=== PATIENT | female | born 1955 | race African-American/Black ===

== ENCOUNTER 2019-04-20 06:10 | Inpatient (IN) ==
[~2019-04-20 06:10] MED LIST: CLINDAMYCIN INJ 900 MG in PREMIX 1 EACH IV ONE; VANCOMYCIN INJ 1,000 MG in SODIUM CHLORIDE 0.9% 250 ML IV ONE
[2019-04-20] MEDS ORDERED: LACTATED RINGERS 1,000 ML IV SCH (07:00)
[2019-04-20] MEDS ORDERED: ALBUTEROL/IPRATROPIUM 3 ML NEB RESP TX STA (07:00)
[2019-04-20] MEDS ORDERED: BUPIVACAINE SPINAL 0.75% 2 ML AMP SPINAL ONE (07:08)
[2019-04-20] MEDS ORDERED: DEXAMETHASONE 4 MG/1 ML VIAL ONE (07:09)
[2019-04-20] MEDS ORDERED: ROPIVACAINE 0.5% 30 ML VIAL ONE (07:09)
[2019-04-20] MEDS ORDERED: CLINDAMYCIN INJ 50 ML IV ONE (07:22)
[2019-04-20] MEDS ORDERED: VANCOMYCIN 1,000 MG VIAL ONE (07:22)
[2019-04-20] MEDS ORDERED: NITROGLYCERIN SL 0.4 MG TABLET SL PRN (08:39)
[2019-04-20] MEDS ORDERED: MORPHINE 4 MG/1 ML VIAL IV PRN ×2 (08:42)
[2019-04-20] MEDS ORDERED: ONDANSETRON 4 MG/2 ML VIAL IV PRN (08:42)
[2019-04-20] MEDS ORDERED: oxyCODONE IR 5 MG TABLET PO PRN ×2 (08:42)
[2019-04-20] MEDS ORDERED: MAGNESIUM HYDROXIDE SUSP 30 ML UDCUP PO PRN (08:42)
[2019-04-20] MEDS ORDERED: NEOMYCIN/POLYMYXIN/BACITRACIN OINT 28.4 GM TUBE TOP ONE (10:25)
[2019-04-20] MEDS ORDERED: GLUCAGON 1 MG VIAL IM PRN (10:42)
[2019-04-20] MEDS ORDERED: DEXTROSE 10% 25 GM/250 ML BAG IV PRN (10:42)
[2019-04-20] MEDS ORDERED: ALBUTEROL/IPRATROPIUM 3 ML NEB RESP TX ONE ×2 (10:46→11:13)
[2019-04-20] MEDS ORDERED: PROPOFOL 200 MG/20 ML VIAL IV ONE (10:57)
[2019-04-20] MEDS ORDERED: TRANEXAMIC ACID 1,000 MG/10 ML VIAL ONE (10:58)
[2019-04-20] MEDS ORDERED: fentaNYL 100 MCG/2 ML VIAL ONE (10:58)
[2019-04-20] MEDS ORDERED: MIDAZOLAM 2 MG/2 ML VIAL ONE (10:58)
[2019-04-20] MEDS ORDERED: KETAMINE 500 MG/10 ML VIAL ONE (10:58)
[2019-04-20] MEDS ORDERED: SODIUM CHLORIDE 0.9% 100 ML IV ONE (10:59)
[2019-04-20] MEDS ORDERED: ACETAMINOPHEN 1,000 MG/100 ML VIAL IV ONE (10:59)
[2019-04-20] MEDS: LACTATED RINGERS 1,000 ML IV SCH ×2 (11:23→20:13)
[2019-04-20] MEDS: INSULIN LISPRO 100 UNIT/ML SUBCUT SCH ×3 (12:30→22:35)
[2019-04-20] MEDS: DOCUSATE SODIUM 100 MG CAPSULE PO SCH ×2 (13:06→21:26)
[2019-04-20] MEDS: ISOSORBIDE MONONITRATE 30 MG TABLET PO SCH (13:06)
[2019-04-20] MEDS: POTASSIUM CHLORIDE 20 MEQ TABLET PO SCH (13:08)
[2019-04-20] MEDS: FLUoxetine 20 MG CAPSULE PO SCH (13:10)
[2019-04-20] MEDS: PANTOPRAZOLE 40 MG TABLET PO SCH (13:10)
[2019-04-20] MEDS: oxyCODONE/ACETAMINOPHEN 5-325 MG TABLET PO PRN ×2 (14:50→21:26)
[2019-04-20] MEDS ORDERED: ALBUTEROL 2.5 MG/3 ML NEB RESP TX PRN (15:00)
[2019-04-20] MEDS ORDERED: VANCOMYCIN INJ 1,000 MG in SODIUM CHLORIDE 0.9% 250 ML IV ONE (20:00)
[2019-04-20] MEDS: CLINDAMYCIN INJ 900 MG in PREMIX 1 EACH IV SCH (20:12)
[2019-04-20] MEDS: CARVEDILOL 25 MG TABLET PO SCH (20:13)
[2019-04-20] MEDS: MONTELUKAST 10 MG TABLET PO SCH (21:26)
[2019-04-20] MEDS: risperiDONE 1 MG TABLET PO SCH (21:26)
[2019-04-20] MEDS: ATORVASTATIN 20 MG TABLET PO SCH (21:26)
[2019-04-21] MEDS: CLINDAMYCIN INJ 900 MG in PREMIX 1 EACH IV SCH (01:23)
[2019-04-21] MEDS: FONDAPARINUX 2.5 MG/0.5 ML SYRINGE SUBCUT SCH (01:23)
[2019-04-21] MEDS: LACTATED RINGERS 1,000 ML IV SCH (04:13)
[2019-04-21 05:56] LABS: Basophils % 0.1 % (0.0-0.8); Immature Granulocytes % 0.7 %; Immature Granulocytes Absolute 0.06 #; Lymphocytes % 10.8 % (21.3-54.2); Mean Platelet Volume 9.8 FL (9.6-12.0); Monocytes % 10.2 % (1.7-12.7); Neutrophils % 78.2 % (38.7-73.9); Platelet Count 149 T/CUMM (130-400); Red Blood Count 3.72 MC/CUMM (3.8-5.5); Red Cell Distribution Width 15.9 % (9.3-17.3); White Blood Count 9.2 T/CUMM (4-12)
[2019-04-21 06:24] LABS: Calcium 8.2 MG/DL (8.5-10.1); Osmolality,Calculated 280.4 MOS/KG (273-304)
[2019-04-21] MEDS: INSULIN LISPRO 100 UNIT/ML SUBCUT SCH ×4 (07:30→21:12)
[2019-04-21] MEDS: oxyCODONE/ACETAMINOPHEN 5-325 MG TABLET PO PRN ×3 (08:50→22:31)
[2019-04-21] MEDS: POTASSIUM CHLORIDE 20 MEQ TABLET PO SCH (08:52)
[2019-04-21] MEDS: MAGNESIUM OXIDE 400 MG TABLET PO SCH (08:52)
[2019-04-21] MEDS: ENALAPRIL 20 MG TABLET PO SCH (08:52)
[2019-04-21] MEDS: ISOSORBIDE MONONITRATE 30 MG TABLET PO SCH (08:52)
[2019-04-21] MEDS: amLODIPine 5 MG TABLET PO SCH (08:52)
[2019-04-21] MEDS: GLIMEPIRIDE 2 MG TABLET PO SCH ×2 (08:53→08:56)
[2019-04-21] MEDS: FLUoxetine 20 MG CAPSULE PO SCH (08:53)
[2019-04-21] MEDS: PANTOPRAZOLE 40 MG TABLET PO SCH (08:54)
[2019-04-21] MEDS: CARVEDILOL 25 MG TABLET PO SCH ×2 (08:54→17:41)
[2019-04-21] MEDS: FUROSEMIDE 40 MG TABLET PO SCH (08:54)
[2019-04-21] MEDS: DOCUSATE SODIUM 100 MG CAPSULE PO SCH ×2 (08:54→21:12)
[2019-04-21] MEDS: ATORVASTATIN 20 MG TABLET PO SCH (21:13)
[2019-04-21] MEDS: risperiDONE 1 MG TABLET PO SCH (21:13)
[2019-04-21] MEDS: MONTELUKAST 10 MG TABLET PO SCH (21:13)
[2019-04-21] MEDS: BACLOFEN 10 MG TABLET PO PRN (21:18)
[2019-04-22] MEDS: diphenhydrAMINE CAP 25 MG CAPSULE PO PRN ×2 (00:48→16:36)
[2019-04-22] MEDS: FONDAPARINUX 2.5 MG/0.5 ML SYRINGE SUBCUT SCH (02:53)
[2019-04-22 06:05] LABS: Basophils % 0.1 % (0.0-0.8); Hematocrit 26.2 VOL% (35.7-47.0); Hemoglobin 8.1 GM/DL (12.0-16.0); Immature Granulocytes % 0.5 %; Immature Granulocytes Absolute 0.05 #; Lymphocytes # 1.2 10*3/uL (1.4-4.0); Lymphocytes % 12.6 % (21.3-54.2); Mean Corpuscular HGB Conc 30.9 GM/DL (32-36); Mean Corpuscular Volume 77.7 FL (87-102); Mean Platelet Volume 10.8 FL (9.6-12.0); Monocytes % 8.4 % (1.7-12.7); Neutrophils % 78.4 % (38.7-73.9); Platelet Count 152 T/CUMM (130-400); Red Blood Count 3.37 MC/CUMM (3.8-5.5); Red Cell Distribution Width 15.8 % (9.3-17.3); White Blood Count 9.7 T/CUMM (4-12)
[2019-04-22] MEDS: oxyCODONE/ACETAMINOPHEN 5-325 MG TABLET PO PRN ×3 (08:07→21:32)
[2019-04-22] MEDS: MAGNESIUM OXIDE 400 MG TABLET PO SCH (08:20)
[2019-04-22] MEDS: FLUoxetine 20 MG CAPSULE PO SCH (08:20)
[2019-04-22] MEDS: POTASSIUM CHLORIDE 20 MEQ TABLET PO SCH (08:21)
[2019-04-22] MEDS: GLIMEPIRIDE 2 MG TABLET PO SCH (08:21)
[2019-04-22] MEDS: CARVEDILOL 25 MG TABLET PO SCH ×2 (08:21→17:00)
[2019-04-22] MEDS: ISOSORBIDE MONONITRATE 30 MG TABLET PO SCH (08:21)
[2019-04-22] MEDS: DOCUSATE SODIUM 100 MG CAPSULE PO SCH ×2 (08:21→21:32)
[2019-04-22] MEDS: ENALAPRIL 20 MG TABLET PO SCH (08:21)
[2019-04-22] MEDS: FUROSEMIDE 40 MG TABLET PO SCH (08:22)
[2019-04-22] MEDS: amLODIPine 5 MG TABLET PO SCH (08:22)
[2019-04-22] MEDS: PANTOPRAZOLE 40 MG TABLET PO SCH (08:22)
[2019-04-22] MEDS: BACLOFEN 10 MG TABLET PO PRN ×2 (08:22→21:33)
[2019-04-22] MEDS: INSULIN LISPRO 100 UNIT/ML SUBCUT SCH ×4 (08:30→21:37)
[2019-04-22] MEDS: risperiDONE 1 MG TABLET PO SCH (21:32)
[2019-04-22] MEDS: MONTELUKAST 10 MG TABLET PO SCH (21:32)
[2019-04-22] MEDS: ATORVASTATIN 20 MG TABLET PO SCH (21:33)
[2019-04-23] MEDS: FONDAPARINUX 2.5 MG/0.5 ML SYRINGE SUBCUT SCH (02:56)
[2019-04-23 05:48] LABS: Basophils % 0.2 % (0.0-0.8); Eosinophils % 0.2 % (0.00-10.9); Hematocrit 24.2 VOL% (35.7-47.0); Hemoglobin 7.5 GM/DL (12.0-16.0); Immature Granulocytes % 0.5 %; Immature Granulocytes Absolute 0.05 #; Lymphocytes # 1.8 10*3/uL (1.4-4.0); Lymphocytes % 17.9 % (21.3-54.2); Mean Corpuscular Volume 77.8 FL (87-102); Mean Platelet Volume 11.3 FL (9.6-12.0); Monocytes % 7.7 % (1.7-12.7); Neutrophils % 73.5 % (38.7-73.9); Platelet Count 157 T/CUMM (130-400); Red Blood Count 3.11 MC/CUMM (3.8-5.5); Red Cell Distribution Width 15.9 % (9.3-17.3); White Blood Count 10.2 T/CUMM (4-12)
[2019-04-23] MEDS: INSULIN LISPRO 100 UNIT/ML SUBCUT SCH ×2 (07:52→12:20)
[2019-04-23] MEDS: DOCUSATE SODIUM 100 MG CAPSULE PO SCH (08:57)
[2019-04-23] MEDS: CARVEDILOL 25 MG TABLET PO SCH (08:57)
[2019-04-23] MEDS: GLIMEPIRIDE 2 MG TABLET PO SCH (08:57)
[2019-04-23] MEDS: PANTOPRAZOLE 40 MG TABLET PO SCH (08:58)
[2019-04-23] MEDS: FUROSEMIDE 40 MG TABLET PO SCH (08:58)
[2019-04-23] MEDS: FLUoxetine 20 MG CAPSULE PO SCH (08:58)
[2019-04-23] MEDS: ISOSORBIDE MONONITRATE 30 MG TABLET PO SCH (08:58)
[2019-04-23] MEDS: MAGNESIUM OXIDE 400 MG TABLET PO SCH (08:58)
[2019-04-23] MEDS: ENALAPRIL 20 MG TABLET PO SCH (08:58)
[2019-04-23] MEDS: POTASSIUM CHLORIDE 20 MEQ TABLET PO SCH (08:58)
[2019-04-23] MEDS: amLODIPine 5 MG TABLET PO SCH (08:58)
[2019-04-23] MEDS ORDERED: ERGOCALCIFEROL 50,000 UNIT CAPSULE PO SCH (09:00)
[2019-04-23] MEDS: oxyCODONE/ACETAMINOPHEN 5-325 MG TABLET PO PRN (09:46)
[2019-04-23] MEDS: BACLOFEN 10 MG TABLET PO PRN (09:47)
[2019-04-23 11:42] VITALS: BP 115/52
== END 2019-04-23 15:14 | disposition home health service (06) | DRG 470 ==
LOC: N.OR 06:10 → N.SDSINP 06:10 → N.3E 11:44
PROVIDERS: ADMIT Orthopaedic Surgery; ATTEND Orthopaedic Surgery

== ENCOUNTER 2021-08-15 16:33 | Inpatient (IN) ==
[2021-08-15] MEDS ORDERED: GLUCAGON 1 MG VIAL IM PRN (20:07)
[2021-08-15] MEDS ORDERED: ONDANSETRON 4 MG/2 ML VIAL IV PRN (20:07)
[2021-08-15] MEDS ORDERED: hydrALAZINE 20 MG/1 ML VIAL IV PRN (20:07)
[2021-08-15] MEDS ORDERED: DEXTROSE 50% 25 GM/50 ML SYRINGE IV PRN (20:36)
[2021-08-15] MEDS ORDERED: methylPREDNISolone SOD SUC 40 MG/1 ML VIAL IV SCH (21:00)
[2021-08-15] MEDS: LEVOFLOXACIN INJ 750 MG/150 ML PREMIX IV SCH (21:08)
[2021-08-15] MEDS: INSULIN LISPRO 100 UNIT/ML SUBCUT SCH (21:08)
[2021-08-15 21:10] LABS: PT Patient Result 11.6 SECS (10.5-12.0)
[2021-08-15 21:16] LABS: Hematocrit 41.9 VOL% (35.7-47.0); Hemoglobin 12.6 GM/DL (12.0-16.0); Immature Granulocytes % 1.2 %; Immature Granulocytes Absolute 0.12 #; Lymphocytes # 0.6 10*3/uL (1.4-4.0); Lymphocytes % 6.5 % (21.3-54.2); Mean Corpuscular HGB Conc 30.1 GM/DL (32-36); Mean Corpuscular Volume 77.9 FL (87-102); Mean Platelet Volume 9.2 FL (9.6-12.0); Monocytes % 5.5 % (1.7-12.7); Neutrophils % 86.8 % (38.7-73.9); Platelet Count 204 T/CUMM (130-400); Red Blood Count 5.38 MC/CUMM (3.8-5.5); Red Cell Distribution Width 16.9 % (9.3-17.3); White Blood Count 9.7 T/CUMM (4-12)
[2021-08-15 21:18] LABS: Albumin 2.7 G/DL (3.4-5.0); Bilirubin,Total 0.5 MG/DL (0.20-1.00); Calcium 8.3 MG/DL (8.5-10.1); Osmolality,Calculated 284.4 MOS/KG (273-304); Potassium 3.9 MMOL/L (3.5-5.1); Total Protein 6.5 G/DL (6.4-8.2)
[2021-08-15] MEDS: ACETAMINOPHEN 325 MG TABLET PO PRN (21:22)
[2021-08-15 22:42] LABS: ABG HCO3 33.7 MMOL/L (20-26); ABG Oxygen Saturation 96.1 % (95-100); ABG PH 7.332 (7.35-7.45)
[2021-08-15 22:44] LABS: ABG PCO2 74.2 MM HG (35-48)
[2021-08-16] MEDS: methylPREDNISolone SOD SUC 125 MG/2 ML VIAL IV SCH ×3 (00:05→18:23)
[2021-08-16] MEDS: ALBUTEROL/IPRATROPIUM 3 ML NEB RESP TX SCH ×3 (00:20→19:58)
[2021-08-16 06:24] LABS: Risk Ratio 2.13; VLDL Cholesterol 20.4 MG/DL
[2021-08-16 07:23] LABS: ABG Base Excess 13.6 MMOL/L (-2.5-2.5); ABG HCO3 37.1 MMOL/L (20-26); ABG Oxygen Saturation 84.6 % (95-100); ABG PCO2 59.4 MM HG (35-48); ABG PH 7.445 (7.35-7.45); ABG PO2 49.3 MM HG (80-95); ABG TCO2 35.5 MMOL/L (23-27)
[2021-08-16] MEDS: ISOSORBIDE MONONITRATE 30 MG TABLET PO SCH (08:32)
[2021-08-16] MEDS: POTASSIUM CHLORIDE 20 MEQ TABLET PO SCH (08:32)
[2021-08-16] MEDS: ENALAPRIL 20 MG TABLET PO SCH (08:32)
[2021-08-16] MEDS: FUROSEMIDE 40 MG TABLET PO SCH (08:32)
[2021-08-16] MEDS: PANTOPRAZOLE 40 MG TABLET PO SCH (08:32)
[2021-08-16] MEDS: carvediloL 25 MG TABLET PO SCH ×2 (08:32→18:22)
[2021-08-16] MEDS: MAGNESIUM OXIDE 400 MG TABLET PO SCH (08:33)
[2021-08-16] MEDS: amLODIPine 5 MG TABLET PO SCH (08:33)
[2021-08-16] MEDS: CYANOCOBALAMIN 500 MCG TABLET PO SCH (08:33)
[2021-08-16] MEDS: INSULIN LISPRO 100 UNIT/ML SUBCUT SCH ×4 (08:35→20:28)
[2021-08-16] MEDS: FERROUS SULFATE 325 MG TABLET PO SCH ×2 (08:36→20:27)
[2021-08-16] MEDS: ACETAMINOPHEN 325 MG TABLET PO PRN ×2 (14:18→18:44)
[2021-08-16] MEDS: MONTELUKAST 10 MG TABLET PO SCH (20:26)
[2021-08-16] MEDS: ATORVASTATIN 20 MG TABLET PO SCH (20:27)
[2021-08-16] MEDS: ENOXAPARIN 40 MG/0.4 ML SYRINGE SUBCUT SCH (20:28)
[2021-08-16] MEDS: MENTHOL/ZINC OXIDE OINT 71 GM JAR TOP SCH (20:28)
[2021-08-16] MEDS: LEVOFLOXACIN INJ 750 MG/150 ML PREMIX IV SCH (20:29)
[2021-08-17] MEDS: ALBUTEROL/IPRATROPIUM 3 ML NEB RESP TX SCH ×4 (00:21→21:08)
[2021-08-17] MEDS: methylPREDNISolone SOD SUC 125 MG/2 ML VIAL IV SCH ×2 (00:24→11:03)
[2021-08-17] MEDS: ACETAMINOPHEN 325 MG TABLET PO PRN (03:39)
[2021-08-17 05:50] LABS: Hematocrit 42.5 VOL% (35.7-47.0); Hemoglobin 12.9 GM/DL (12.0-16.0); Immature Granulocytes % 0.8 %; Immature Granulocytes Absolute 0.07 #; Lymphocytes # 0.5 10*3/uL (1.4-4.0); Lymphocytes % 5.9 % (21.3-54.2); Mean Corpuscular HGB Conc 30.4 GM/DL (32-36); Mean Platelet Volume 9.9 FL (9.6-12.0); Monocytes % 2.5 % (1.7-12.7); Neutrophils % 90.8 % (38.7-73.9); Platelet Count 220 T/CUMM (130-400); Red Blood Count 5.52 MC/CUMM (3.8-5.5); Red Cell Distribution Width 16.7 % (9.3-17.3); White Blood Count 8.5 T/CUMM (4-12)
[2021-08-17 06:09] LABS: Calcium 8.5 MG/DL (8.5-10.1); Osmolality,Calculated 280.8 MOS/KG (273-304); Potassium 3.9 MMOL/L (3.5-5.1)
[2021-08-17 06:13] LABS: Lymphocytes 6 % (20-55); Segmented Neutrophils 90 % (50-85); Total Cells Counted 100
[2021-08-17 06:14] LABS: Hypochromia 2+; Microcytosis 1+; Ovalocytes Slight
[2021-08-17 06:15] LABS: Platelet Estimate Normal; Target Cells Slight
[2021-08-17] MEDS: ACETAMINOPHEN/CODEINE 300-30 MG TABLET PO PRN ×2 (07:12→22:35)
[2021-08-17] MEDS: INSULIN LISPRO 100 UNIT/ML SUBCUT SCH ×4 (08:54→22:38)
[2021-08-17] MEDS ORDERED: ERGOCALCIFEROL 50,000 UNIT CAPSULE PO SCH (09:00)
[2021-08-17] MEDS: ENALAPRIL 20 MG TABLET PO SCH (09:55)
[2021-08-17] MEDS: CYANOCOBALAMIN 500 MCG TABLET PO SCH (09:55)
[2021-08-17] MEDS: carvediloL 25 MG TABLET PO SCH ×2 (09:55→16:15)
[2021-08-17] MEDS: amLODIPine 5 MG TABLET PO SCH (09:56)
[2021-08-17] MEDS: PANTOPRAZOLE 40 MG TABLET PO SCH (09:56)
[2021-08-17] MEDS: FUROSEMIDE 40 MG TABLET PO SCH (09:56)
[2021-08-17] MEDS: ISOSORBIDE MONONITRATE 30 MG TABLET PO SCH (09:56)
[2021-08-17] MEDS: POTASSIUM CHLORIDE 20 MEQ TABLET PO SCH (09:56)
[2021-08-17] MEDS: metOLazone 5 MG TABLET PO SCH (09:56)
[2021-08-17] MEDS: FERROUS SULFATE 325 MG TABLET PO SCH ×2 (09:56→22:35)
[2021-08-17] MEDS: MAGNESIUM OXIDE 400 MG TABLET PO SCH (09:56)
[2021-08-17] MEDS: MENTHOL/ZINC OXIDE OINT 71 GM JAR TOP SCH ×2 (09:57→22:41)
[2021-08-17] MEDS: LEVOFLOXACIN 750 MG TABLET PO SCH (16:15)
[2021-08-17] MEDS: methylPREDNISolone SOD SUC 40 MG/1 ML VIAL IV SCH (16:16)
[2021-08-17] MEDS: MONTELUKAST 10 MG TABLET PO SCH (22:34)
[2021-08-17] MEDS: ATORVASTATIN 20 MG TABLET PO SCH (22:35)
[2021-08-17] MEDS: ENOXAPARIN 40 MG/0.4 ML SYRINGE SUBCUT SCH (22:38)
[2021-08-18] MEDS: ALBUTEROL/IPRATROPIUM 3 ML NEB RESP TX SCH ×4 (00:51→21:46)
[2021-08-18] MEDS: methylPREDNISolone SOD SUC 40 MG/1 ML VIAL IV SCH ×2 (03:06→14:49)
[2021-08-18] MEDS: ACETAMINOPHEN 325 MG TABLET PO PRN (03:08)
[2021-08-18 06:12] LABS: Calcium 8.6 MG/DL (8.5-10.1); Osmolality,Calculated 280.7 MOS/KG (273-304)
[2021-08-18 06:21] LABS: Basophils % 0.1 % (0.0-0.8); Hematocrit 44.9 VOL% (35.7-47.0); Hemoglobin 13.7 GM/DL (12.0-16.0); Immature Granulocytes % 1.1 %; Immature Granulocytes Absolute 0.13 #; Lymphocytes # 0.6 10*3/uL (1.4-4.0); Lymphocytes % 5.3 % (21.3-54.2); Mean Corpuscular HGB Conc 30.5 GM/DL (32-36); Mean Corpuscular Volume 76.9 FL (87-102); Mean Platelet Volume 9.4 FL (9.6-12.0); Monocytes % 4.5 % (1.7-12.7); Platelet Count 207 T/CUMM (130-400); Red Blood Count 5.84 MC/CUMM (3.8-5.5); Red Cell Distribution Width 16.7 % (9.3-17.3); White Blood Count 12.1 T/CUMM (4-12)
[2021-08-18] MEDS: ACETAMINOPHEN/CODEINE 300-30 MG TABLET PO PRN (06:21)
[2021-08-18] MEDS: INSULIN LISPRO 100 UNIT/ML SUBCUT SCH ×4 (10:37→22:53)
[2021-08-18] MEDS: ENALAPRIL 20 MG TABLET PO SCH (10:37)
[2021-08-18] MEDS: MAGNESIUM OXIDE 400 MG TABLET PO SCH (10:37)
[2021-08-18] MEDS: PANTOPRAZOLE 40 MG TABLET PO SCH (10:38)
[2021-08-18] MEDS: amLODIPine 5 MG TABLET PO SCH (10:38)
[2021-08-18] MEDS: LEVOFLOXACIN 750 MG TABLET PO SCH (10:38)
[2021-08-18] MEDS: ISOSORBIDE MONONITRATE 30 MG TABLET PO SCH (10:38)
[2021-08-18] MEDS: CYANOCOBALAMIN 500 MCG TABLET PO SCH (10:38)
[2021-08-18] MEDS: FERROUS SULFATE 325 MG TABLET PO SCH ×2 (10:39→22:50)
[2021-08-18] MEDS: carvediloL 25 MG TABLET PO SCH ×2 (10:39→17:10)
[2021-08-18] MEDS: POTASSIUM CHLORIDE 20 MEQ TABLET PO SCH (10:39)
[2021-08-18] MEDS: FUROSEMIDE 40 MG TABLET PO SCH (10:39)
[2021-08-18] MEDS: MENTHOL/ZINC OXIDE OINT 71 GM JAR TOP SCH ×2 (10:41→22:58)
[2021-08-18] MEDS: MONTELUKAST 10 MG TABLET PO SCH (22:50)
[2021-08-18] MEDS: ENOXAPARIN 40 MG/0.4 ML SYRINGE SUBCUT SCH (22:53)
[2021-08-18] MEDS: ATORVASTATIN 20 MG TABLET PO SCH (22:53)
[2021-08-19] MEDS: ALBUTEROL/IPRATROPIUM 3 ML NEB RESP TX SCH ×4 (00:46→21:49)
[2021-08-19] MEDS: methylPREDNISolone SOD SUC 40 MG/1 ML VIAL IV SCH ×2 (03:36→16:04)
[2021-08-19] MEDS: ACETAMINOPHEN/CODEINE 300-30 MG TABLET PO PRN ×2 (03:41→19:48)
[2021-08-19] MEDS: INSULIN LISPRO 100 UNIT/ML SUBCUT SCH ×4 (10:03→23:05)
[2021-08-19] MEDS: MAGNESIUM OXIDE 400 MG TABLET PO SCH (10:29)
[2021-08-19] MEDS: amLODIPine 5 MG TABLET PO SCH (10:29)
[2021-08-19] MEDS: CYANOCOBALAMIN 500 MCG TABLET PO SCH (10:29)
[2021-08-19] MEDS: LEVOFLOXACIN 750 MG TABLET PO SCH (10:29)
[2021-08-19] MEDS: FUROSEMIDE 40 MG TABLET PO SCH (10:30)
[2021-08-19] MEDS: ENALAPRIL 20 MG TABLET PO SCH (10:30)
[2021-08-19] MEDS: ISOSORBIDE MONONITRATE 30 MG TABLET PO SCH (10:31)
[2021-08-19] MEDS: POTASSIUM CHLORIDE 20 MEQ TABLET PO SCH (10:31)
[2021-08-19] MEDS: PANTOPRAZOLE 40 MG TABLET PO SCH (10:31)
[2021-08-19] MEDS: FERROUS SULFATE 325 MG TABLET PO SCH ×2 (10:31→23:05)
[2021-08-19] MEDS: carvediloL 25 MG TABLET PO SCH ×2 (10:31→16:04)
[2021-08-19] MEDS: MENTHOL/ZINC OXIDE OINT 71 GM JAR TOP SCH ×2 (10:35→23:06)
[2021-08-19] MEDS: ENOXAPARIN 40 MG/0.4 ML SYRINGE SUBCUT SCH (23:05)
[2021-08-19] MEDS: ATORVASTATIN 20 MG TABLET PO SCH (23:05)
[2021-08-19] MEDS: MONTELUKAST 10 MG TABLET PO SCH (23:06)
[2021-08-20] MEDS: ALBUTEROL/IPRATROPIUM 3 ML NEB RESP TX SCH ×4 (01:14→19:53)
[2021-08-20] MEDS: ACETAMINOPHEN/CODEINE 300-30 MG TABLET PO PRN ×2 (02:24→16:54)
[2021-08-20] MEDS: methylPREDNISolone SOD SUC 40 MG/1 ML VIAL IV SCH ×2 (02:25→14:51)
[2021-08-20] MEDS: INSULIN LISPRO 100 UNIT/ML SUBCUT SCH ×4 (09:25→20:44)
[2021-08-20] MEDS: ISOSORBIDE MONONITRATE 30 MG TABLET PO SCH (09:26)
[2021-08-20] MEDS: LEVOFLOXACIN 750 MG TABLET PO SCH (09:26)
[2021-08-20] MEDS: carvediloL 25 MG TABLET PO SCH ×2 (09:26→16:53)
[2021-08-20] MEDS: MAGNESIUM OXIDE 400 MG TABLET PO SCH (09:26)
[2021-08-20] MEDS: FUROSEMIDE 40 MG TABLET PO SCH (09:26)
[2021-08-20] MEDS: PANTOPRAZOLE 40 MG TABLET PO SCH (09:27)
[2021-08-20] MEDS: metOLazone 5 MG TABLET PO SCH (09:27)
[2021-08-20] MEDS: amLODIPine 5 MG TABLET PO SCH (09:27)
[2021-08-20] MEDS: MENTHOL/ZINC OXIDE OINT 71 GM JAR TOP SCH ×2 (09:27→20:46)
[2021-08-20] MEDS: POTASSIUM CHLORIDE 20 MEQ TABLET PO SCH (09:27)
[2021-08-20] MEDS: FERROUS SULFATE 325 MG TABLET PO SCH ×2 (09:27→20:43)
[2021-08-20] MEDS: CYANOCOBALAMIN 500 MCG TABLET PO SCH (09:27)
[2021-08-20] MEDS: ENALAPRIL 20 MG TABLET PO SCH (09:27)
[2021-08-20] MEDS: MONTELUKAST 10 MG TABLET PO SCH (20:43)
[2021-08-20] MEDS: ATORVASTATIN 20 MG TABLET PO SCH (20:43)
[2021-08-20] MEDS: ENOXAPARIN 40 MG/0.4 ML SYRINGE SUBCUT SCH (20:45)
[2021-08-21] MEDS: ALBUTEROL/IPRATROPIUM 3 ML NEB RESP TX SCH ×3 (00:15→14:09)
[2021-08-21] MEDS: methylPREDNISolone SOD SUC 40 MG/1 ML VIAL IV SCH (02:19)
[2021-08-21] MEDS: INSULIN LISPRO 100 UNIT/ML SUBCUT SCH ×2 (07:30→12:24)
[2021-08-21] MEDS: ENALAPRIL 20 MG TABLET PO SCH (08:33)
[2021-08-21] MEDS: FUROSEMIDE 40 MG TABLET PO SCH (08:33)
[2021-08-21] MEDS: ISOSORBIDE MONONITRATE 30 MG TABLET PO SCH (08:33)
[2021-08-21] MEDS: MAGNESIUM OXIDE 400 MG TABLET PO SCH (08:33)
[2021-08-21] MEDS: amLODIPine 5 MG TABLET PO SCH (08:33)
[2021-08-21] MEDS: PANTOPRAZOLE 40 MG TABLET PO SCH (08:33)
[2021-08-21] MEDS: LEVOFLOXACIN 750 MG TABLET PO SCH (08:33)
[2021-08-21] MEDS: CYANOCOBALAMIN 500 MCG TABLET PO SCH (08:34)
[2021-08-21] MEDS: POTASSIUM CHLORIDE 20 MEQ TABLET PO SCH (08:34)
[2021-08-21] MEDS: FERROUS SULFATE 325 MG TABLET PO SCH (08:34)
[2021-08-21] MEDS: carvediloL 25 MG TABLET PO SCH (08:34)
[2021-08-21] MEDS: MENTHOL/ZINC OXIDE OINT 71 GM JAR TOP SCH (08:34)
[2021-08-21 12:09] VITALS: BP 108/64
== END 2021-08-21 14:12 | disposition home or self-care (01) | DRG 190 ==
LOC: N.5E 19:01 → SUATTDRO 19:01
PROVIDERS: ADMIT Internal Medicine; ATTEND Internal Medicine

== ENCOUNTER 2022-10-02 10:31 | Inpatient (IN) ==
[2022-10-02] MEDS ORDERED: MAGNESIUM SULF RIDER 2 GM/50 ML PREMIX IV STA (10:40)
[2022-10-02] MEDS ORDERED: ALBUTEROL NEB SOLN 5 MG/ML 20 ML/BOTTLE CONT NEB STA (10:40)
[2022-10-02] MEDS ORDERED: methylPREDNISolone SOD SUC 125 MG/2 ML VIAL IV STA (10:40)
[2022-10-02] MEDS ORDERED: LEVOFLOXACIN INJ 750 MG/150 ML PREMIX IV STA (10:41)
[2022-10-02] MEDS ORDERED: ALBUTEROL/IPRATROPIUM 3 ML NEB RESP TX STA (10:44)
[2022-10-02] MEDS ORDERED: MIDAZOLAM DRIP 100 MG/100 ML PREMIX IV PRN (10:52)
[2022-10-02 11:02] LABS: Arterial Base Excess iSTAT 9 MMOL/L (-2.5-2.5); Arterial Bicarbonate iSTAT 35.4 MMOL/L (20-26); Arterial O2 Saturation iSTAT 97 % (95-100); Arterial PCO2 iSTAT 53 MM HG (35-48); Arterial PO2 iSTAT 88 MM HG (80-95); Arterial Total CO2 iSTAT 37 MMO/L (23-27); Arterial pH iSTAT 7.432 (7.35-7.45)
[2022-10-02] MEDS ORDERED: ALBUTEROL 2.5 MG/3 ML NEB RESP TX PRN ×2 (11:02→15:00)
[2022-10-02] MEDS ORDERED: ONDANSETRON 4 MG/2 ML VIAL IV PRN (11:03)
[2022-10-02 11:46] LABS: Hyaline Casts,Urine 1 /LPF (0-3); RBC,Urine 57 /HPF (0-4); Squamous Epithelial Cell,Urine Occasional /HPF (0-10)
[2022-10-02 11:47] LABS: Glucose,Urine (UA) 500 mg/dL (Negative); Ketones,Urine 40 mg/dL (Negative); Nitrite,Urine Negative (Negative); Protein,Urine Negative (Negative); Urine Appearance Clear (Clear); Urine Color Yellow (Yellow)
[2022-10-02 11:48] LABS: PT Patient Result 10.9 SECS (10.1-12.1); Partial Thromboplastin Time 25.9 SECS (23.7-32.9)
[2022-10-02 11:48] LABS: Bilirubin,Urine Negative (Negative); Blood, Urine Large mg/dL (Negative); Urine Urobilinogen 0.2 eU/dL (<2.0)
[2022-10-02 12:09] LABS: Barbiturates Screen,Urine Negative (Negative); Benzodiazepines Screen,Urine Positive (Negative); Cannabinoid Screen,Urine Negative (Negative); Opiate Screen,Urine Positive (Negative); Phencyclidine Screen,Urine Negative (Negative)
[2022-10-02 12:56] LABS: Basophils % 0.1 % (0.0-0.8); Hematocrit 38.2 VOL% (35.7-47.0); Hemoglobin 11.2 GM/DL (12.0-16.0); Immature Granulocytes % 0.7 %; Immature Granulocytes Absolute 0.06 #; Lymphocytes # 0.4 10*3/uL (1.4-4.0); Lymphocytes % 4.5 % (21.3-54.2); Mean Corpuscular HGB Conc 29.3 GM/DL (32-36); Mean Corpuscular Volume 81.8 FL (87-102); Mean Platelet Volume 9.8 FL (9.6-12.0); Monocytes # 0.1 10*3/uL (0.11-0.8); Monocytes % 1.5 % (1.7-12.7); Neutrophils % 93.2 % (38.7-73.9); Platelet Count 208 T/CUMM (130-400); Red Blood Count 4.67 MC/CUMM (3.8-5.5); Red Cell Distribution Width 17.2 % (9.3-17.3); White Blood Count 8.63 T/CUMM (4-12)
[2022-10-02 13:02] LABS: Albumin 3.2 G/DL (3.4-5.0); Bilirubin,Total 0.5 MG/DL (0.20-1.00); Calcium 8.5 MG/DL (8.5-10.1); Osmolality,Calculated 281.1 MOS/KG (273-304); Potassium 3.8 MMOL/L (3.5-5.1); Total Protein 6.6 G/DL (6.4-8.2)
[2022-10-02 13:06] LABS: Band Neutrophils 2 % (0-10); Lymphocytes 6 % (20-55); Total Cells Counted 100
[2022-10-02 13:07] LABS: Anisocytosis 1+; Hypochromia 1+
[2022-10-02 13:08] LABS: Platelet Estimate Normal
[2022-10-02] MEDS ORDERED: PROMETHAZINE 25 MG TABLET PO PRN (13:29)
[2022-10-02] MEDS: ALBUTEROL/IPRATROPIUM 3 ML NEB RESP TX SCH ×2 (13:34→18:50)
[2022-10-02] MEDS: ENOXAPARIN 40 MG/0.4 ML SYRINGE SUBCUT SCH (15:14)
[2022-10-02] MEDS: BACLOFEN 10 MG TABLET PO SCH ×2 (15:14→20:50)
[2022-10-02] MEDS: FAMOTIDINE 20 MG/2 ML VIAL IV SCH (15:18)
[2022-10-02] MEDS ORDERED: DEXTROSE 10% 250 ML BAG IV PRN (17:20)
[2022-10-02] MEDS ORDERED: GLUCAGON 1 MG VIAL IM PRN (17:20)
[2022-10-02] MEDS: methylPREDNISolone SOD SUC 40 MG/1 ML VIAL IV SCH (18:01)
[2022-10-02] MEDS: INSULIN LISPRO 100 UNIT/ML SUBCUT SCH (18:32)
[2022-10-02] MEDS: ATORVASTATIN 80 MG TABLET PO SCH (20:49)
[2022-10-02] MEDS: FUROSEMIDE 40 MG TABLET PO SCH (20:49)
[2022-10-02] MEDS: risperiDONE 1 MG TABLET PO SCH (20:49)
[2022-10-02] MEDS: SACUBITRIL/VALSARTAN 49-51 MG TABLET PO SCH (20:49)
[2022-10-02] MEDS: carvediloL 25 MG TABLET PO SCH (20:50)
[2022-10-02] MEDS: FERROUS SULFATE 325 MG TABLET PO SCH (20:50)
[2022-10-02] MEDS: traZODone 50 MG TABLET PO SCH (20:50)
[2022-10-02] MEDS: DICLOFENAC 1% GEL 100 GM TUBE TOP SCH (20:56)
[2022-10-03] MEDS: ALBUTEROL/IPRATROPIUM 3 ML NEB RESP TX SCH ×4 (00:02→19:10)
[2022-10-03] MEDS: FAMOTIDINE 20 MG/2 ML VIAL IV SCH ×3 (01:58→23:31)
[2022-10-03] MEDS: methylPREDNISolone SOD SUC 40 MG/1 ML VIAL IV SCH ×3 (02:09→18:02)
[2022-10-03 03:26] LABS: Arterial Base Excess iSTAT 7 MMOL/L (-2.5-2.5); Arterial Bicarbonate iSTAT 32.3 MMOL/L (20-26); Arterial O2 Saturation iSTAT 98 % (95-100); Arterial PCO2 iSTAT 46 MM HG (35-48); Arterial PO2 iSTAT 107 MM HG (80-95); Arterial Total CO2 iSTAT 34 MMO/L (23-27)
[2022-10-03] MEDS: ACETAMINOPHEN 325 MG TABLET PO PRN ×2 (04:02→16:19)
[2022-10-03 04:12] LABS: Hematocrit 34.6 VOL% (35.7-47.0); Immature Granulocytes % 0.6 %; Immature Granulocytes Absolute 0.04 #; Lymphocytes # 0.6 10*3/uL (1.4-4.0); Lymphocytes % 8.1 % (21.3-54.2); Mean Corpuscular HGB Conc 31.8 GM/DL (32-36); Mean Corpuscular Volume 76.9 FL (87-102); Mean Platelet Volume 9.3 FL (9.6-12.0); Monocytes # 0.3 10*3/uL (0.11-0.8); Monocytes % 4.4 % (1.7-12.7); Neutrophils % 86.9 % (38.7-73.9); Platelet Count 199 T/CUMM (130-400); Red Cell Distribution Width 16.6 % (9.3-17.3); White Blood Count 7.26 T/CUMM (4-12)
[2022-10-03 04:39] LABS: Albumin 3.1 G/DL (3.4-5.0); Bilirubin,Total 0.4 MG/DL (0.20-1.00); Calcium 8.7 MG/DL (8.5-10.1); Osmolality,Calculated 280.5 MOS/KG (273-304); Potassium 3.1 MMOL/L (3.5-5.1); Total Protein 6.6 G/DL (6.4-8.2)
[2022-10-03] MEDS: POTASSIUM CHLORIDE RIDER 10 MEQ/100 ML PREMIX IV PRN ×2 (06:27→08:19)
[2022-10-03] MEDS: INSULIN LISPRO 100 UNIT/ML SUBCUT SCH ×4 (06:30→18:03)
[2022-10-03] MEDS: DAPAGLIFLOZIN 10 MG TABLET PO SCH (08:14)
[2022-10-03] MEDS: MONTELUKAST 10 MG TABLET PO SCH (08:16)
[2022-10-03] MEDS: FUROSEMIDE 40 MG TABLET PO SCH (08:17)
[2022-10-03] MEDS: carvediloL 25 MG TABLET PO SCH ×2 (08:17→21:16)
[2022-10-03] MEDS: CYANOCOBALAMIN 500 MCG TABLET PO SCH (08:17)
[2022-10-03] MEDS: ISOSORBIDE MONONITRATE 30 MG TABLET PO SCH (08:17)
[2022-10-03] MEDS: FERROUS SULFATE 325 MG TABLET PO SCH ×2 (08:17→21:15)
[2022-10-03] MEDS: POTASSIUM CHLORIDE 20 MEQ TABLET PO SCH (08:17)
[2022-10-03] MEDS: FLUoxetine 20 MG CAPSULE PO SCH (08:17)
[2022-10-03] MEDS: MAGNESIUM OXIDE 400 MG TABLET PO SCH (08:18)
[2022-10-03] MEDS: BACLOFEN 10 MG TABLET PO SCH ×3 (08:18→21:16)
[2022-10-03] MEDS: ASPIRIN EC 81 MG TABLET PO SCH (08:18)
[2022-10-03] MEDS: SACUBITRIL/VALSARTAN 49-51 MG TABLET PO SCH ×2 (08:18→21:13)
[2022-10-03] MEDS: CLOPIDOGREL 75 MG TABLET PO SCH (08:18)
[2022-10-03] MEDS: risperiDONE 1 MG TABLET PO SCH ×2 (08:32→21:14)
[2022-10-03] MEDS: DICLOFENAC 1% GEL 100 GM TUBE TOP SCH (08:37)
[2022-10-03] MEDS: FLUTICASONE 50 MCG NASAL SPRAY 16 GM BOTTLE BOTH NARES SCH ×2 (08:39→18:03)
[2022-10-03] MEDS ORDERED: PANTOPRAZOLE 40 MG TABLET PO SCH (09:00)
[2022-10-03] MEDS ORDERED: ERGOCALCIFEROL 50,000 UNIT CAPSULE PO SCH (09:00)
[2022-10-03] MEDS ORDERED: hydrALAZINE 20 MG/1 ML VIAL IV PRN (10:01)
[2022-10-03] MEDS ORDERED: FUROSEMIDE 40 MG/4 ML VIAL IV ONE (10:07)
[2022-10-03] MEDS: SPIRONOLACTONE 25 MG TABLET PO SCH ×2 (11:23→21:15)
[2022-10-03] MEDS: amLODIPine 5 MG TABLET PO SCH (11:23)
[2022-10-03] MEDS: LEVOFLOXACIN INJ 750 MG/150 ML PREMIX IV SCH (11:26)
[2022-10-03] MEDS: ENOXAPARIN 40 MG/0.4 ML SYRINGE SUBCUT SCH (13:34)
[2022-10-03] MEDS: traZODone 50 MG TABLET PO SCH (21:14)
[2022-10-03] MEDS: ATORVASTATIN 80 MG TABLET PO SCH (21:14)
[2022-10-04] MEDS: ALBUTEROL/IPRATROPIUM 3 ML NEB RESP TX SCH ×4 (01:00→19:38)
[2022-10-04] MEDS: INSULIN LISPRO 100 UNIT/ML SUBCUT SCH ×5 (01:51→21:36)
[2022-10-04] MEDS: methylPREDNISolone SOD SUC 40 MG/1 ML VIAL IV SCH ×3 (02:48→21:29)
[2022-10-04] MEDS: ACETAMINOPHEN 325 MG TABLET PO PRN ×2 (03:54→08:57)
[2022-10-04 04:50] LABS: Arterial Base Excess iSTAT 14 MMOL/L (-2.5-2.5); Arterial Bicarbonate iSTAT 41.7 MMOL/L (20-26); Arterial O2 Saturation iSTAT 87 % (95-100); Arterial PCO2 iSTAT 67 MM HG (35-48); Arterial PO2 iSTAT 55 MM HG (80-95); Arterial Total CO2 iSTAT 44 MMO/L (23-27); Arterial pH iSTAT 7.403 (7.35-7.45)
[2022-10-04 05:01] LABS: Arterial Base Excess iSTAT 14 MMOL/L (-2.5-2.5); Arterial O2 Saturation iSTAT 95 % (95-100); Arterial PCO2 iSTAT 64 MM HG (35-48); Arterial PO2 iSTAT 77 MM HG (80-95); Arterial Total CO2 iSTAT 43 MMO/L (23-27); Arterial pH iSTAT 7.413 (7.35-7.45)
[2022-10-04 05:20] LABS: Hematocrit 35.3 VOL% (35.7-47.0); Hemoglobin 10.9 GM/DL (12.0-16.0); Immature Granulocytes % 0.4 %; Immature Granulocytes Absolute 0.04 #; Lymphocytes # 0.6 10*3/uL (1.4-4.0); Mean Corpuscular HGB Conc 30.9 GM/DL (32-36); Mean Corpuscular Volume 78.3 FL (87-102); Mean Platelet Volume 9.8 FL (9.6-12.0); Monocytes # 0.4 10*3/uL (0.11-0.8); Neutrophils % 89.6 % (38.7-73.9); Platelet Count 209 T/CUMM (130-400); Red Blood Count 4.51 MC/CUMM (3.8-5.5); Red Cell Distribution Width 16.7 % (9.3-17.3); White Blood Count 10.33 T/CUMM (4-12)
[2022-10-04 05:42] LABS: % Iron Saturation 17.4 % (18-50)
[2022-10-04 05:44] LABS: Calcium 8.4 MG/DL (8.5-10.1); Osmolality,Calculated 283.4 MOS/KG (273-304); Potassium 3.4 MMOL/L (3.5-5.1)
[2022-10-04] MEDS ORDERED: POTASSIUM CHLORIDE 20 MEQ TABLET PO PRN (07:53)
[2022-10-04] MEDS ORDERED: GLUCAGON 1 MG VIAL IM PRN (08:09)
[2022-10-04] MEDS ORDERED: DEXTROSE 10% 250 ML BAG IV PRN (08:13)
[2022-10-04] MEDS: carvediloL 25 MG TABLET PO SCH ×2 (08:55→21:36)
[2022-10-04] MEDS: FLUoxetine 20 MG CAPSULE PO SCH (08:55)
[2022-10-04] MEDS: POTASSIUM CHLORIDE 20 MEQ TABLET PO SCH (08:56)
[2022-10-04] MEDS: CLOPIDOGREL 75 MG TABLET PO SCH (08:56)
[2022-10-04] MEDS: amLODIPine 5 MG TABLET PO SCH (08:56)
[2022-10-04] MEDS: BACLOFEN 10 MG TABLET PO SCH ×3 (08:56→21:24)
[2022-10-04] MEDS: ISOSORBIDE MONONITRATE 30 MG TABLET PO SCH (08:56)
[2022-10-04] MEDS: MONTELUKAST 10 MG TABLET PO SCH (08:56)
[2022-10-04] MEDS: SACUBITRIL/VALSARTAN 49-51 MG TABLET PO SCH ×2 (08:56→21:28)
[2022-10-04] MEDS: DAPAGLIFLOZIN 10 MG TABLET PO SCH (08:57)
[2022-10-04] MEDS: ASPIRIN EC 81 MG TABLET PO SCH (08:57)
[2022-10-04] MEDS: risperiDONE 1 MG TABLET PO SCH ×2 (08:58→21:20)
[2022-10-04] MEDS: SPIRONOLACTONE 25 MG TABLET PO SCH ×2 (08:58→21:22)
[2022-10-04] MEDS: FERROUS SULFATE 325 MG TABLET PO SCH ×2 (08:58→21:22)
[2022-10-04] MEDS: CYANOCOBALAMIN 500 MCG TABLET PO SCH (08:58)
[2022-10-04] MEDS: MAGNESIUM OXIDE 400 MG TABLET PO SCH (08:59)
[2022-10-04] MEDS ORDERED: FUROSEMIDE 40 MG/4 ML VIAL IV SCH (09:00)
[2022-10-04] MEDS: FLUTICASONE 50 MCG NASAL SPRAY 16 GM BOTTLE BOTH NARES SCH (09:11)
[2022-10-04] MEDS: FAMOTIDINE 20 MG/2 ML VIAL IV SCH (12:00)
[2022-10-04] MEDS: LEVOFLOXACIN INJ 750 MG/150 ML PREMIX IV SCH (12:27)
[2022-10-04] MEDS: ENOXAPARIN 40 MG/0.4 ML SYRINGE SUBCUT SCH (15:15)
[2022-10-04] MEDS: FUROSEMIDE 40 MG TABLET PO SCH (15:22)
[2022-10-04] MEDS: ATORVASTATIN 80 MG TABLET PO SCH (21:25)
[2022-10-04] MEDS: traZODone 50 MG TABLET PO SCH (21:25)
[2022-10-04] MEDS: ACETAMINOPHEN/CODEINE 300-30 MG TABLET PO PRN (21:26)
[2022-10-05] MEDS: ALBUTEROL/IPRATROPIUM 3 ML NEB RESP TX SCH ×4 (01:00→19:05)
[2022-10-05 05:23] LABS: Hematocrit 36.4 VOL% (35.7-47.0); Immature Granulocytes % 0.9 %; Immature Granulocytes Absolute 0.08 #; Lymphocytes # 0.7 10*3/uL (1.4-4.0); Mean Corpuscular HGB Conc 30.2 GM/DL (32-36); Mean Corpuscular Volume 78.8 FL (87-102); Monocytes # 0.3 10*3/uL (0.11-0.8); Monocytes % 3.6 % (1.7-12.7); Neutrophils % 87.5 % (38.7-73.9); Platelet Count 192 T/CUMM (130-400); Red Blood Count 4.62 MC/CUMM (3.8-5.5); Red Cell Distribution Width 16.6 % (9.3-17.3); White Blood Count 9.08 T/CUMM (4-12)
[2022-10-05 05:46] LABS: Calcium 8.4 MG/DL (8.5-10.1); Osmolality,Calculated 278.8 MOS/KG (273-304); Potassium 3.7 MMOL/L (3.5-5.1)
[2022-10-05] MEDS: MAGNESIUM OXIDE 400 MG TABLET PO SCH (08:42)
[2022-10-05] MEDS: risperiDONE 1 MG TABLET PO SCH ×2 (08:43→21:43)
[2022-10-05] MEDS: DAPAGLIFLOZIN 10 MG TABLET PO SCH (08:43)
[2022-10-05] MEDS: FLUoxetine 20 MG CAPSULE PO SCH (08:43)
[2022-10-05] MEDS: BACLOFEN 10 MG TABLET PO SCH ×3 (08:43→21:43)
[2022-10-05] MEDS: SACUBITRIL/VALSARTAN 49-51 MG TABLET PO SCH ×2 (08:43→21:44)
[2022-10-05] MEDS: amLODIPine 5 MG TABLET PO SCH (08:44)
[2022-10-05] MEDS: SPIRONOLACTONE 25 MG TABLET PO SCH ×2 (08:44→21:43)
[2022-10-05] MEDS: FERROUS SULFATE 325 MG TABLET PO SCH ×2 (08:44→21:42)
[2022-10-05] MEDS: carvediloL 25 MG TABLET PO SCH (08:44)
[2022-10-05] MEDS: ISOSORBIDE MONONITRATE 30 MG TABLET PO SCH (08:44)
[2022-10-05] MEDS: POTASSIUM CHLORIDE 20 MEQ TABLET PO SCH (08:44)
[2022-10-05] MEDS: CYANOCOBALAMIN 500 MCG TABLET PO SCH (08:44)
[2022-10-05] MEDS: FUROSEMIDE 40 MG TABLET PO SCH ×2 (08:44→16:00)
[2022-10-05] MEDS: MONTELUKAST 10 MG TABLET PO SCH (08:44)
[2022-10-05] MEDS: methylPREDNISolone SOD SUC 40 MG/1 ML VIAL IV SCH ×2 (08:45→16:00)
[2022-10-05] MEDS: CLOPIDOGREL 75 MG TABLET PO SCH (08:45)
[2022-10-05] MEDS: ASPIRIN EC 81 MG TABLET PO SCH (08:45)
[2022-10-05] MEDS: INSULIN LISPRO 100 UNIT/ML SUBCUT SCH ×4 (08:46→21:45)
[2022-10-05] MEDS: FLUTICASONE 50 MCG NASAL SPRAY 16 GM BOTTLE BOTH NARES SCH (08:46)
[2022-10-05] MEDS: ACETAMINOPHEN/CODEINE 300-30 MG TABLET PO PRN (09:43)
[2022-10-05] MEDS: BENZONATATE 100 MG CAPSULE PO PRN (10:41)
[2022-10-05] MEDS: DORNASE ALFA 2.5 MG/2.5 ML VIAL RESP TX SCH ×2 (12:54→19:05)
[2022-10-05] MEDS: ENOXAPARIN 40 MG/0.4 ML SYRINGE SUBCUT SCH (14:21)
[2022-10-05] MEDS: MEROPENEM 500 MG in SODIUM CHLORIDE 0.9% 100 ML IV SCH ×2 (14:21→19:22)
[2022-10-05] MEDS: traZODone 50 MG TABLET PO SCH (21:43)
[2022-10-05] MEDS: ATORVASTATIN 80 MG TABLET PO SCH (21:43)
[2022-10-06] MEDS: ALBUTEROL/IPRATROPIUM 3 ML NEB RESP TX SCH ×4 (00:57→18:53)
[2022-10-06] MEDS: MEROPENEM 500 MG in SODIUM CHLORIDE 0.9% 100 ML IV SCH ×4 (00:58→18:02)
[2022-10-06] MEDS: methylPREDNISolone SOD SUC 40 MG/1 ML VIAL IV SCH ×3 (00:58→15:13)
[2022-10-06] MEDS: ACETAMINOPHEN/CODEINE 300-30 MG TABLET PO PRN ×3 (06:35→22:00)
[2022-10-06] MEDS: INSULIN LISPRO 100 UNIT/ML SUBCUT SCH ×4 (07:20→22:01)
[2022-10-06] MEDS: DORNASE ALFA 2.5 MG/2.5 ML VIAL RESP TX SCH ×2 (07:26→18:53)
[2022-10-06] MEDS: amLODIPine 5 MG TABLET PO SCH (08:51)
[2022-10-06] MEDS: FERROUS SULFATE 325 MG TABLET PO SCH ×2 (08:51→21:59)
[2022-10-06] MEDS: BACLOFEN 10 MG TABLET PO SCH ×3 (08:51→22:06)
[2022-10-06] MEDS: FLUoxetine 20 MG CAPSULE PO SCH (08:51)
[2022-10-06] MEDS: POTASSIUM CHLORIDE 20 MEQ TABLET PO SCH (08:51)
[2022-10-06] MEDS: MONTELUKAST 10 MG TABLET PO SCH (08:51)
[2022-10-06] MEDS: SACUBITRIL/VALSARTAN 49-51 MG TABLET PO SCH ×2 (08:52→21:59)
[2022-10-06] MEDS: ASPIRIN EC 81 MG TABLET PO SCH (08:52)
[2022-10-06] MEDS: MAGNESIUM OXIDE 400 MG TABLET PO SCH (08:52)
[2022-10-06] MEDS: ISOSORBIDE MONONITRATE 30 MG TABLET PO SCH (08:52)
[2022-10-06] MEDS: FUROSEMIDE 40 MG TABLET PO SCH ×2 (08:52→15:15)
[2022-10-06] MEDS: SPIRONOLACTONE 25 MG TABLET PO SCH ×2 (08:52→21:59)
[2022-10-06] MEDS: CLOPIDOGREL 75 MG TABLET PO SCH (08:52)
[2022-10-06] MEDS: risperiDONE 1 MG TABLET PO SCH ×2 (08:52→21:59)
[2022-10-06] MEDS: DAPAGLIFLOZIN 10 MG TABLET PO SCH (08:53)
[2022-10-06] MEDS: CYANOCOBALAMIN 500 MCG TABLET PO SCH (08:53)
[2022-10-06] MEDS: FLUTICASONE 50 MCG NASAL SPRAY 16 GM BOTTLE BOTH NARES SCH ×2 (08:57→13:06)
[2022-10-06] MEDS: ENOXAPARIN 40 MG/0.4 ML SYRINGE SUBCUT SCH (13:07)
[2022-10-06] MEDS: BENZONATATE 100 MG CAPSULE PO PRN ×2 (13:10→21:58)
[2022-10-06] MEDS: traZODone 50 MG TABLET PO SCH (21:59)
[2022-10-06] MEDS: ATORVASTATIN 80 MG TABLET PO SCH (21:59)
[2022-10-07] MEDS: ALBUTEROL/IPRATROPIUM 3 ML NEB RESP TX SCH ×3 (00:18→14:00)
[2022-10-07] MEDS: methylPREDNISolone SOD SUC 40 MG/1 ML VIAL IV SCH ×2 (00:56→10:14)
[2022-10-07] MEDS: MEROPENEM 500 MG in SODIUM CHLORIDE 0.9% 100 ML IV SCH ×3 (00:58→13:59)
[2022-10-07 05:14] LABS: Basophils % 0.1 % (0.0-0.8); Hemoglobin 11.8 GM/DL (12.0-16.0); Immature Granulocytes % 1.1 %; Immature Granulocytes Absolute 0.11 #; Lymphocytes # 0.7 10*3/uL (1.4-4.0); Lymphocytes % 7.1 % (21.3-54.2); Mean Corpuscular HGB Conc 29.5 GM/DL (32-36); Mean Corpuscular Volume 79.8 FL (87-102); Mean Platelet Volume 10.4 FL (9.6-12.0); Monocytes # 0.4 10*3/uL (0.11-0.8); Monocytes % 3.6 % (1.7-12.7); Neutrophils % 88.1 % (38.7-73.9); Platelet Count 239 T/CUMM (130-400); Red Blood Count 5.01 MC/CUMM (3.8-5.5); Red Cell Distribution Width 16.5 % (9.3-17.3); White Blood Count 10.08 T/CUMM (4-12)
[2022-10-07 05:41] LABS: Calcium 8.6 MG/DL (8.5-10.1); Osmolality,Calculated 283.4 MOS/KG (273-304); Potassium 4.2 MMOL/L (3.5-5.1)
[2022-10-07] MEDS: DORNASE ALFA 2.5 MG/2.5 ML VIAL RESP TX SCH (07:30)
[2022-10-07] MEDS: INSULIN LISPRO 100 UNIT/ML SUBCUT SCH ×2 (07:48→11:56)
[2022-10-07] MEDS: SACUBITRIL/VALSARTAN 49-51 MG TABLET PO SCH (10:14)
[2022-10-07] MEDS: CLOPIDOGREL 75 MG TABLET PO SCH (10:15)
[2022-10-07] MEDS: amLODIPine 5 MG TABLET PO SCH (10:15)
[2022-10-07] MEDS: POTASSIUM CHLORIDE 20 MEQ TABLET PO SCH (10:15)
[2022-10-07] MEDS: FLUoxetine 20 MG CAPSULE PO SCH (10:15)
[2022-10-07] MEDS: BACLOFEN 10 MG TABLET PO SCH (10:15)
[2022-10-07] MEDS: FUROSEMIDE 40 MG TABLET PO SCH (10:16)
[2022-10-07] MEDS: DAPAGLIFLOZIN 10 MG TABLET PO SCH (10:16)
[2022-10-07] MEDS: SPIRONOLACTONE 25 MG TABLET PO SCH (10:16)
[2022-10-07] MEDS: ASPIRIN EC 81 MG TABLET PO SCH (10:16)
[2022-10-07] MEDS: MAGNESIUM OXIDE 400 MG TABLET PO SCH (10:16)
[2022-10-07] MEDS: CYANOCOBALAMIN 500 MCG TABLET PO SCH (10:16)
[2022-10-07] MEDS: ACETAMINOPHEN/CODEINE 300-30 MG TABLET PO PRN (10:16)
[2022-10-07] MEDS: risperiDONE 1 MG TABLET PO SCH (10:16)
[2022-10-07] MEDS: MONTELUKAST 10 MG TABLET PO SCH (10:17)
[2022-10-07] MEDS: ISOSORBIDE MONONITRATE 30 MG TABLET PO SCH (10:17)
[2022-10-07] MEDS: FERROUS SULFATE 325 MG TABLET PO SCH (10:17)
[2022-10-07] MEDS: FLUTICASONE 50 MCG NASAL SPRAY 16 GM BOTTLE BOTH NARES SCH (10:18)
[2022-10-07 11:14] VITALS: BP 133/71
== END 2022-10-07 15:07 | disposition home health service (06) | DRG 208 ==
LOC: N.ED 10:31 → SUATTDRO 11:02 → N.EDINP 11:02 → N.ICU 12:59 → N.3E 10-05 14:47
PROVIDERS: ADMIT Family Medicine; ATTEND Internal Medicine